=== PATIENT | male | born 1935 | race Caucasian/White ===

== ENCOUNTER 2016-04-03 06:57 | Inpatient (IN) | payer MEDICARE, BC ==
--- NOTE | 2016-04-01 19:31 | PREOPHP ---
DATE OF ADMISSION: 04/03/2016 Speaker: Shahidemily Waldenpippa, phone [phone]. REASON FOR ADMISSION: Surgery on 04/03/[address] Pito Kwon for a left shoulder hardware re vision. HISTORY OF THE PRESENT ILLNESS: The patient is a 80-year-old white male who had a shoulder replacem ent implant that has recently had hardware failure. This was implanted approximately 8 years ago. He had no clear trauma or injury that provoked the hardware failure. The patient has continued pain that is refractory to physical therapy and usual courses of medications supervised by Dr. Butler. The patient has had no recent significant infection. He did have GI viral illness approximately that lasted for 2 to 3 days. It has completely resolved as of the 03/12/2016 with no nause a or vomiting, fever or chills. He has had no diarrhea. He has good p.o. intake. As far as the surgery goes, the patient has had no history of abnormal bleeding or transfusions. Af ter surgery in the past, he has had no history of abnormal blood clots. He has had no adverse react ions to prior anesthesia from multiple other surgeries. The patient has a good exercise tolerance. He has no problems with current exercise regimen. He is more limited by orthopedic symptoms such a s shoulder and other joint pain. The patient was also seen by his plate maker zinc in the last 6 months without any concerns for cardiovascular issues. He does have a history of coronary artery bypass g rafting surgery in 10/2008. He has had no angina and has as I mentioned above has good exercise martell erance. The patient does 4 flights of stairs without any significant dyspnea or chest tightness or anginal symptoms. PAST MEDICAL HISTORY: Includes: 1. Coronary artery disease as mentioned above. This was treated with coronary artery bypass grafti surgery in 10/2008. 2. Benign prostatic hypertrophy. 3. Hypertension. 4. Hypercholesterolemia. 5. History of neck osteoarthritis. 6. History of hypogonadism treated with testosterone supplementation. 7. History of a gastric ulcer in his 50s now resolved. PAST SURGICAL HISTORY: Includes: 1. Multiple colonoscopies. 2. History of bilateral total hip replacement. 3. History of left total knee replacement. 4. History of left total shoulder replacement. 5. Coronary artery bypass grafting 10/2008. 6. The patient has had bilateral shoulder joint replacements, bilateral hips, left partial knee rep lacement approximately 10 years ago. ALLERGIES: ALLERGIC REACTION TO PENICILLIN. HE HAS HAD ADVERSE REACTIONS TO FLU SHOTS. HE HAS TEQUILA SEA AND VOMITING WITH VICODIN. STRANGELY HE DOES FINE WITH NORCO AND WITH NONSTEROIDAL ANTI-INFLAMM ATORY HE GETS GASTROINTESTINAL UPSET. SOCIAL HISTORY: He is able to do gym workouts but minimal lately in the last month due to shoulder problems. He is able to do stairs as mentioned above, 4 flights without any anginal or pulmonary sy mptoms. He is a nonsmoker. He drinks approximately 5 drinks per week. 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 He is . His father at age 52 of heart disease. Mother at 64 from lung cancer, no siblings. REVIEW OF SYSTEMS: He has no fever or chills, no weight loss, no cough or dyspnea on exertion, no chest pain or palpitations. He has no constipation or diarrhea, no dysuria, no hematuria. He has m ild BPH symptoms. No neurologic symptoms such as headaches or vision changes, no claudication sympt oms. CURRENT MEDICATIONS: Includes: 1. Atorvastatin 40 mg p.o. daily. 2. AndroGel 1 dose daily. 3. Metoprolol 100 mg ER 1 p.o. daily. 4. Ramipril 10 mg p.o. daily. 5. Uroxatral 10 mg p.o. at bedtime. 6. Aspirin full strength 325 mg is being held one week prior to surgery. 7. Multivitamins daily. 8. Also, he is holding Advil prior to surgery. PHYSICAL EXAMINATION: VITAL SIGNS: Weight is 222 with clothes and no shoes. Height is 6 feet, pulse is 70, blood pressur e 110/60 per my reading. Temperature 97.0, pulse ox is 97% on room air. Respiratory rate is 14 jade aths per minute. He has no skin lesions or skin rashes. HEENT: Sclerae and conjunctivae and lids are within normal limits. Extraocular muscles are intact. He has no cervical or supraclavicular lymphadenopathy. No thyromegaly. NECK: He has slightly limited neck range of motion approximately 20% less than normal, reduction in extension and flexion but no severe pain. CHEST: His exam is clear to auscultation and percussion bilaterally. HEART: Regular rate and rhythm with 1/6 systolic murmur at the left sternal border, no rubs or gall ops. No S3 or S4. JVD is flat. ABDOMEN: Soft and nontender and nondistended, no hepatosplenomegaly, no masses or bruits. EXTREMITIES: No cyanosis, clubbing, or edema. His peripheral pulses are 2+ on his upper and lower e xtremities. His sensation is intact to light touch. RECTAL: Exam was done within the last year and is deferred at this time. NEUROLOGICAL: Cranial nerves II through XII are intact. He has normal gait and normal strength wit hout testing shoulder muscles. Normal sensation, normal cognitive function, normal mood. LABORATORY DATA: The lab workup and chest x-ray which was done 03/21/2016 that shows no infiltrates or effusions. Bilateral shoulder arthroplasties visualized. Bone is mildly osteopenic. Median zenia rnotomy wire due to his bypass surgery, no active disease in the chest x-ray. His EKG also done shows normal sinus rhythm with 1st degree AV block at 62 beats per minute. He has no signif icant ST-T wave abnormalities. He has a right bundle branch block that is unchanged for at least a year and a half and is approved for surgery. On 03/21/2016, white blood cell count is 6.3, hemoglob in 13.6, hematocrit is 41.4, platelets are 225, glucose is 106, BUN 19, creatinine 0.8, sodium 135, potassium 4.4, chloride 101, bicarbonate 32.6. His BUN is 19, creatinine 0.8. Liver panel is nabil l. His PSA is 3.35. Urinalysis is normal. His PTT is 35, pro time is 13.4, INR 1.02. ASSESSMENT AND PLAN: 1. Preoperative clearance for his revision of his left total shoulder replacement: The patient may proceed with the planned surgery at low surgical risk. He is to stop his aspirin and nonsteroidal anti-inflammatories one week prior to the surgery. He is to take his metoprolol and ramipril on the morning of the surgery with small sips of water. He reports having cardiology workup to be forward ed to the surgeon separately from Savi Earl. He had an echocardiogram on 10/31/2015 that is ess entially unremarkable. Heart ultrasound with ejection fraction of 60% to 55%, moderate left ventric ular hypertrophy, mild aortic stenosis, mild aortic insufficiency. No cardiac issues at this time p recluding successful surgery. 2. Hypogonadism: The patient's testosterone was mildly elevated at 1300 and this will be adjusted prior to surgery. Dictated By: GENERIC AUTHOR for PITO RODRIGUES/MADELINE Conf#: [id number] DID#: [id number] CC: PITO BUTLER MD;*EndCC*
[~2016-04-03] VITALS: Ht 182.9 cm; Wt 99.9 kg
[2016-04-03] VITALS (23 sets, daily range): BP systolic 118–158; BP diastolic 40–90; PULSE 58–90; RESP 13–20; Ht 182.9 cm; Wt 99.9 kg
[2016-04-03] MEDS ORDERED: TRANEXAMIC ACID 1,000 MG in SOD CHLORIDE 0.9% 100 ML IVPB ONE (07:00)
[2016-04-03] MEDS ORDERED: oxyCODONE (CR) 10 MG TAB [oxyCONTIN] PO ONE (07:00)
[2016-04-03] MEDS ORDERED: CEFAZOLIN 2 GM/50 ML (PMX) 50 ML IVPB ONE (07:00)
[2016-04-03] MEDS ORDERED: GABAPENTIN 300 MG CAP PO ONE (07:00)
[2016-04-03] MEDS ORDERED: SOD CHLORIDE 0.9% 100 ML, TRANEXAMIC ACID 3,000 MG IRR ONE ×2 (07:00)
[2016-04-03] MEDS ORDERED: DEXAMETHASONE 1 MG TAB PO ONE (07:00)
[2016-04-03] MEDS ORDERED: traMADol 50 MG TAB PO ONE (07:00)
[2016-04-03] MEDS ORDERED: CEFAZOLIN 1 GM INJ ONE (07:00)
[2016-04-03] MEDS ORDERED: BUPIVACAINE 0.5% (SDV) 30 ML, morphine SULFATE (PF) 8 MG, EPINEPHrine 0.3 MG, KETOROLAC... IRR SCH ×7 (07:00)
[2016-04-03] MEDS ORDERED: TEST1.25 TD (08:07)
[2016-04-03] MEDS ORDERED: RAMI10CA48 PO (08:07)
[2016-04-03] MEDS ORDERED: ATOR40TA68 PO (08:07)
[2016-04-03] MEDS ORDERED: ALFU10TA2 PO (08:07)
[2016-04-03] MEDS ORDERED: METO-429 PO (08:07)
[2016-04-03] MEDS ORDERED: FENTAnyl 50 MCG/ML VIAL ONE (08:23)
[2016-04-03] MEDS ORDERED: ONDANSETRON 4 MG INJ ONE (08:23)
[2016-04-03] MEDS ORDERED: PROPOFOL 100 ML ONE (08:23)
[2016-04-03] MEDS ORDERED: GLYCOPYRROLATE 0.4 MG INJ ONE (08:23)
[2016-04-03] MEDS ORDERED: NEOSTIGMINE 3 MG/3 ML SYRINGE ONE (08:23)
[2016-04-03] MEDS ORDERED: ROCURONIUM 50 MG INJ ONE (08:23)
[2016-04-03] MEDS ORDERED: DEXAMETHASONE 4 MG/ML 1 ML INJ ONE (08:23)
[2016-04-03] MEDS ORDERED: MIDAZOLAM 1 MG/ML 2 ML INJ ONE (08:23)
[2016-04-03] MEDS ORDERED: ROPIVACAINE 0.5 % 30 ML VIAL ONE (08:23)
[2016-04-03] MEDS ORDERED: POLYMYXIN/BACITRACIN 1L IRRIG ONE (08:40)
[2016-04-03] MEDS ORDERED: CA CHLORIDE 10% 10 ML SYRINGE ONE (08:40)
[2016-04-03] MEDS ORDERED: THROMBIN 5000 UNIT VIAL ONE (08:40)
[2016-04-03] MEDS ORDERED: BUPIVACAINE 0.5%/EPI (SDV) 30 ML INJ ONE (08:40)
[2016-04-03] MEDS ORDERED: hydrALAzine 20 MG INJ ONE (09:57)
[2016-04-03] MEDS ORDERED: TRANEXAMIC ACID 1,000 MG in SOD CHLORIDE 0.9% 100 ML IV ONE ×2 (10:30→11:30)
[2016-04-03] MEDS ORDERED: ONDANSETRON 4 MG INJ IV PRN (11:30)
[2016-04-03] MEDS ORDERED: ZOLPIDEM 5 MG TAB PO PRN (11:30)
[2016-04-03] MEDS ORDERED: MAGNESIUM HYDROXIDE 30ML CUP PO PRN (11:30)
[2016-04-03] MEDS ORDERED: ACETAMINOPHEN 500 MG TAB PO PRN (11:30)
[2016-04-03] MEDS ORDERED: morphine 2 MG INJ IV PRN (11:30)
[2016-04-03] MEDS ORDERED: morphine 4 MG/ML VIAL IV PRN (11:30)
[2016-04-03] MEDS ORDERED: KETOROLAC 15 MG INJ IV PRN (11:30)
[2016-04-03] MEDS ORDERED: DIPHENHYDRAMINE 50 MG INJ IV PRN (11:30)
[2016-04-03] MEDS ORDERED: OXYCODONE/ACETAMINOPHEN (5/325) TAB PO PRN (11:30)
--- NOTE | 2016-04-03 11:48 | OPR ---
DATE OF OPERATION: 04/03/2016 ATTENDING PHYSICIAN: Pito Butler MD PIZZA DRIVER: Thad Scott MD PREOPERATIVE DIAGNOSIS: Failed left total shoulder. 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 OPERATION PERFORMED: Revision of left total shoulder to reverse total shoulder replacement. Third Officer surgeon Thad Scott MD, was asked to be present at my request as a result of the complex ity associated with this procedure, including positioning of the extremity, manipulation and protect ion of the neurovascular structures. In my opinion, the assistance offered by a nurse tech is insufficient and Dr. Scott should be compensated for his time. PROCEDURE IN DETAIL: Following administration of general endotracheal anesthesia, the patient was p laced in the beach chair position. The left upper extremity was prepped and draped in the usual zenia rile fashion. An extended deltopectoral incision was then undertaken, exposing the conjoined tendon . Significant and severe scar tissue was encountered. A large area of the subdeltoid bone was aurora juan. This was probably heterotopic ossification secondary to the collapse of the humeral component. The anterior subscapularis was then detached. The superior deficient cuff was noted. The humeral component was then removed. A large thick fibrous canal tissue was removed. The kelli l component was completely loose. The glenoid was also loose and this was removed. The canal and t he glenoid area was then debrided down to stable tissue. The attention was then directed to the glenoid. The glenoid was filled. There were several small l ytic areas consistent with the chronic motion that was evident radiographically. The area was then reamed and prepared for a 15 mm length base plate from [employer]. The actual base plate was implanted a fter demineralized bone matrix was then applied to the area. The glenoid peripheral screws were the n position with good fixation. A 36 mm was applied with a solid fixation. Attention was then directed back to the humerus. The humeral canal was reamed up to the 12 mm size. A long stem 12 mm [employer] component was then implanted with a 9 mm baseplate. The joint was taken t hrough a full range of motion with no evident instability. The joint was then thoroughly irrigated, closed using 2-0 Vicryl running sutures as well as a Prineo dressing. A watertight closure was obt ained. A sling was then applied. The patient was then extubated and transported to recovery in sta ble condition. Estimated blood loss for this procedure was 100 mL. Postoperative x-rays will be ob tained in the recovery room. Dictated By: PITO JEREZ/MADELINE Conf#: [id number] DID#: [id number]
--- NOTE | 2016-04-03 12:55 | RADRPT ---
PROCEDURE: XR left Shoulder. CLINICAL INDICATION: Postoperative evaluation TECHNIQUE: 2 views of the left shoulder are available for review. COMPARISON: None available FINDINGS: There is a reverse left shoulder total arthroplasty in anatomic alignment without hardware complica tion. There is adjacent soft tissue swelling and soft tissue gas. There is no evidence of acute fr acture. IMPRESSION: Reverse left shoulder total arthroplasty in anatomic alignment without evidence of hardware complica tion. RPTAT: HSRK .Shantanu Degroot MD, MD Date Time Electronically viewed and signed by .Shantanu Dgeroot MD, on 04/03/2016 12:54 .K/
[2016-04-03] MEDS: DEXAMETHASONE 2 MG TAB PO SCH ×2 (17:40→18:00)
[2016-04-03] MEDS: CEFAZOLIN 1 GM/50 ML (PMX) 50 ML IVPB SCH ×2 (17:40→19:24)
[2016-04-03] MEDS ORDERED: SENNA/DOCUSATE NA (8.6MG/50MG) TAB PO SCH (21:00)
[2016-04-03] MEDS ORDERED: GABAPENTIN 300 MG CAP PO SCH (21:00)
[2016-04-03] MEDS ORDERED: ATORVASTATIN 40 MG TAB PO SCH (21:00)
[2016-04-04 00:58] VITALS: BP 137/61; RESP 20
[2016-04-04] MEDS: DEXAMETHASONE 2 MG TAB PO SCH ×2 (01:03→05:26)
[2016-04-04] MEDS: OXYCODONE/ACETAMINOPHEN (5/325) TAB PO PRN ×2 (03:33→08:30)
[2016-04-04] MEDS ORDERED: CEFAZOLIN 1 GM/50 ML (PMX) 50 ML IVPB SCH (04:00)
--- NOTE | 2016-04-04 04:52 | PDOCDIS ---
Discharge Instructions DIAGNOSIS Discharge Diagnosis: shoulder failed total replacement CONDITION Patient Condition: Good HOME CARE INSTRUCTIONS: Diet Instructions: Regular ACTIVITY: Activity Restrictions: Slowly Increase Activity Weight Bearing Bathing Restrictions: Shower FOLLOW UP/APPOINTMENTS Appointments 2 weeks SCHOOL/WORK RELEASE May return to School/Work with: With Restrictions School/Work Release Comment: five pound table top usage for six weeks PITO NICOLE MD Apr 04, 2016 04:52
[2016-04-04 05:30] VITALS: BP 153/70; PULSE 79; RESP 18
--- NOTE | 2016-04-04 06:34 | DS ---
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 Hx of Present Illness Pain and giving out left shoulder Hospital Course Surgery, followed biotherapy, followed by discharge Home Meds Reported Medications Testosterone* (Androgel*) 1.62%-1.25gm Gel..ea., 1.25 GM TD DAILY, PACKET 04/03/16 Alfuzosin Hcl* (Alfuzosin Hcl*) 10 Mg Tab.er.24h, 10 MG PO DAILY, #30 TAB.SA 04/03/16 Ramipril (Ramipril) 10 Mg Capsule, 10 MG PO DAILY, CAP 04/03/16 Atorvastatin* (Atorvastatin*) 40 Mg Tablet, 40 MG PO QHS, #30 TAB 04/03/16 Metoprolol Tartrate* (Lopressor*) 50 Mg Tab, 50 MG PO DAILY, #60 TAB 04/03/16 Follow-up Plan 2 weeks PITO NICOLE MD Apr 04, 2016 06:34
--- NOTE | 2016-04-04 06:36 | PN ---
Date/Time of Note Date/Time of Note DATE: 04/04/16 TIME: 06:34 24 hour Interval Summary Very comfortable this morning. No pain meds overnight. Physical examination reveals that his wound is clean and dry with dressing intact. He is neurologically intact. He has no signs of DVT. Assessment: Status post revision of reverse total shoulder replacement Plan: He will do physical therapy this morning discharged after that and follow up in 2 weeks Physical Exam Vital Signs Date Time Temp Pulse Resp B/P Pulse Ox O2 Delivery O2 Flow Rate FiO2 04/04/16 05:30 98.3 79 18 153/70 98 Room Air 04/03/16 13:30 2.0 Intake and Output 04/03/16 04/03/16 04/04/16 15:00 23:00 07:00 Intake Total 1900 ml 1050 ml 530 ml Output Total 75 ml 600 ml Balance 1825 ml 450 ml 530 ml VTE Prophylaxis VTE Prophylaxis Intervention: anti-embolic stocking VTE Confirmed-Overlap Tx Rcvd Pt Rcvd Overlap Therapy: No Lines/Catheters IV Catheter Type: Saline Lock Maier in Place: No Assessment/Plan Chief Complaint/Hosp Course Surgery, followed by therapy, followed by discharge Problems: Medications Medications Home Meds Reported Medications Testosterone* (Androgel*) 1.62%-1.25gm Gel..ea., 1.25 GM TD DAILY, PACKET 04/03/16 Alfuzosin Hcl* (Alfuzosin Hcl*) 10 Mg Tab.er.24h, 10 MG PO DAILY, #30 TAB.SA 04/03/16 Ramipril (Ramipril) 10 Mg Capsule, 10 MG PO DAILY, CAP 04/03/16 Atorvastatin* (Atorvastatin*) 40 Mg Tablet, 40 MG PO QHS, #30 TAB 04/03/16 Metoprolol Tartrate* (Lopressor*) 50 Mg Tab, 50 MG PO DAILY, #60 TAB 04/03/16 PITO NICOLE MD Apr 04, 2016 06:36
[2016-04-04 08:13] VITALS: BP 119/56; RESP 18
[2016-04-04 08:30] VITALS: BP 125/75; PULSE 80
[2016-04-04] MEDS ORDERED: BENAZEPRIL 40 MG TAB PO SCH (09:00)
[2016-04-04] MEDS ORDERED: ALFUZOSIN (SR) 10 MG TAB PO SCH (09:00)
[2016-04-04] MEDS ORDERED: ASPIRIN 81 MG TAB PO SCH (09:00)
[2016-04-04] MEDS ORDERED: METOPROLOL 50 MG TAB PO SCH (09:00)
== END 2016-04-04 09:12 | disposition home or self-care (01) | DRG 483 ==
LOC: REC 06:57 → MS1 12:38 → EDBD 14:00
PROVIDERS: ADMIT Orthopaedic Surgery; ATTEND Orthopaedic Surgery
PROC: 0RPK0JZ Removal of Synthetic Substitute from Left Shoulder Joint, Open Approach (ICD-10-PCS; 2016-04-03)
PROC: 0RRK00Z Replacement of Left Shoulder Joint with Reverse Ball and Socket Synthetic Substitute, Open Approach (ICD-10-PCS; principal; 2016-04-03 09:00)
DX: T84.038A Mechanical loosening of other internal prosthetic joint, initial encounter (principal); I10 Essential (primary) hypertension; Z96.612 Presence of left artificial shoulder joint; Y83.8 Other surgical procedures as the cause of abnormal reaction of the patient, or of later complication, without mention of misadventure at the time of the procedure; Y92.019 Unspecified place in single-family (private) house as the place of occurrence of the external cause; E78.00 Pure hypercholesterolemia, unspecified; E29.1 Testicular hypofunction; N40.0 Benign prostatic hyperplasia without lower urinary tract symptoms; I25.10 Atherosclerotic heart disease of native coronary artery without angina pectoris; Z95.1 Presence of aortocoronary bypass graft; Z96.643 Presence of artificial hip joint, bilateral; Z96.652 Presence of left artificial knee joint; Z79.82 Long term (current) use of aspirin
CPT/HCPCS: 73030; 86999; 87070; 97166; Z7610; C1762; C1776; J0171; J0360; J0690; J0735; J1100; J1885; J2250; J2274; J2405; J2710; J2795; J3010; J3370